=== PATIENT | male | born 1975 | race African-American/Black ===

== ENCOUNTER 2017-08-22 23:58 | Emergency (ER) | payer BC ==
[2017-08-23] MEDS ORDERED: HYDROcodone/Acetaminophen 10/325 mg Tablet ONE (00:42)
[2017-08-23] MEDS ORDERED: Ibuprofen 800 MG TAB ONE (00:42)
== END 2017-08-23 00:50 | disposition home or self-care (01) ==
LOC: ERS 23:58
DX: S39.012A Strain of muscle, fascia and tendon of lower back, initial encounter (principal); X58.XXXA Exposure to other specified factors, initial encounter
CPT/HCPCS: 99283

== ENCOUNTER 2017-10-15 11:18 | Outpatient (CLI) | payer BC ==
--- NOTE | 2017-10-15 11:46 | RAD ---
LUMBAR SPINE THREE VIEW SERIES: Indication: Back pain for six weeks. FINDINGS: There is no evidence of compression fracture. Disc space is relatively well preserved. There is strai ghtening of the normal lumbar lordosis. IMPRESSION: No acute osseous abnormality of the lumbar spine. POS: [facility]
== END 2017-10-15 11:19 | disposition home or self-care (01) ==
LOC: RAD 11:18
PROVIDERS: ATTEND Family Medicine
DX: M54.5 Low back pain (principal)
CPT/HCPCS: 72100

== ENCOUNTER 2018-08-30 00:15 | Emergency (ER) | payer BC ==
[2018-08-30 01:05] LABS: #Basophils 0.1 thou/uL (0.0-0.2); #Eosinphils 0.2 thou/uL (0.0-0.7); #Lymphocytes 2.6 thou/uL (1.20-3.40); #Monocytes 0.5 thou/uL (0.11-0.59); #Neutrophils 2.7 thou/uL (1.40-6.50); %Basophils 1.7 % (0.0-1.0); %Eosinophils 3.3 % (0.0-10.0); %Lymphocytes 42.7 % (21.0-51.0); %Monocytes 7.7 % (0.0-10.0); %Neutrophils 44.7 % (42.0-75.0); Hemoglobin 15.2 g/dL (14.0-18.0); Mean Corpuscular HGB CONC 31.5 g/dL (32.0-36.0); Mean Corpuscular Hemoglobin 27.9 pg (27.0-31.0); Mean Corpuscular Volume 88.7 fL (78.0-98.0); Mean Platelet Volume 8.4 fL (7.4-10.4); Platelet Count 150 thou/uL (130-400); RBC Distribution Width 11.2 % (11.5-14.5); Red Blood Cell (RBC) Count 5.47 mill/uL (4.70-6.10); White Blood Cell (WBC) Count 6.1 thou/uL (4.8-10.8)
[2018-08-30] MEDS ORDERED: Meclizine HCl 25 MG TAB ONE (01:16)
[2018-08-30 01:28] LABS: ALT (SGPT) 21 U/L (8-55); AST (SGOT) 24 U/L (5-34); Albumin 4.3 g/dL (3.5-5.0); Alkaline Phosphatase 104 U/L (40-150); Anion Gap 13 mmol/L (10-20); BUN (Urea Nitrogen) 14 mg/dL (8.9-20.6); Bilirubin, Total 0.6 mg/dL (0.2-1.2); CK (CPK) 319 U/L (30-200); Calc. Creatinine Clearance 0 mL/min (70-130); Calcium 9.1 mg/dL (7.8-10.44); Carbon Dioxide 25 mmol/L (22-29); Chloride 104 mmol/L (98-107); Estimated GFR-MDRD 85; Globulin 3.2 g/dL (2.4-3.5); Glucose 125 mg/dL (70-105); Potassium 3.7 mmol/L (3.5-5.1); Protein, Total 7.5 g/dL (6.0-8.3); Sodium 138 mmol/L (136-145)
--- NOTE | 2018-08-30 08:36 | CT ---
PRELIMINARY REPORT/[facility]/EMERGENTY AFTER-HOURS PROCEDURE CT Head Without Intravenous Contrast EXAM DATE/TIME: 08/30/2018 1:09 AM CLINICAL HISTORY: 43 years old, male; Signs and symptoms; Dizziness; Patient HX: Dizziness; PT states his dizziness has improved since onset but is still slightly present TECHNIQUE: Axial computed tomography images of the head/brain without intravenous contrast. COMPARISON: No relevant prior studies available. FINDINGS: Brain: Normal. No hemorrhage. No significant white matter disease. No edema. Ventricles: Normal. No ventriculomegaly. Bones/joints: Normal. No acute fracture. Sinuses: Normal as visualized. No acute sinusitis. Mastoid air cells: Normal as visualized. No mastoid effusion. Soft tissues: Normal. IMPRESSION: No acute intracranial abnormality. Thank you for allowing us to participate in the care of your patient. Dictated and Authenticated by: Chepe Pino MD 08/30/2018 1:19 AM Central Time ([place] & [place]) FINAL REPORT CT BRAIN WITHOUT CONTRAST: I agree with the preliminary report, given by of Jay. POS: [facility]
== END 2018-08-30 02:18 | disposition home or self-care (01) ==
LOC: ERS 00:15
DX: R42 Dizziness and giddiness (principal); R20.2 Paresthesia of skin
CPT/HCPCS: 70450; 80053; 82550; 85025; 93005

== ENCOUNTER 2022-03-20 15:28 | Emergency (ER) | payer BC | END 2022-03-20 18:29 | disposition home or self-care (01) | LOC: ERS 15:28 | DX: S09.90XA Unspecified injury of head, initial encounter (principal); W22.8XXA Striking against or struck by other objects, initial encounter | CPT/HCPCS: 70450 ==